=== PATIENT | female | born 2000 | race Two or more races ===

== ENCOUNTER 2025-01-12 12:10 | Emergency (ER) | payer MEDICAID, SELFPAY ==
--- NOTE | 2025-01-12 12:17 | EKG_ITS ---
[facility] Test Date: 2025-01-12 Pat Name: ANAIS SIN Department: Room: - Gender: Female [employer] Equipment Tester: : 2000 Requested By: ED Temporary Provider Order Number: [id number] Reading MD: ED Temporary Provider Measurements Intervals [place] Rate: 110 P: 17 SC: 125 QRS: 10 QRSD: 80 T: 30 QT: 303 QTc: 411 Interpretive Statements SINUS TACHYCARDIA ABNORMAL RHYTHM ECG No previous ECG available for comparison /store/S0/[id number].pdf
[2025-01-12 12:35] VITALS: BP 149/101; PULSE 110; RESP 18; TEMP 37.2; O2SAT 98; BMI 46.3
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
== END 2025-01-12 14:52 | disposition home or self-care (01) ==
PROVIDERS: Emergency Provider Family Medicine; PCP Family Medicine
DX: R07.9 Chest pain, unspecified (principal); R00.0 Tachycardia, unspecified; V89.9XXA Person injured in unspecified vehicle accident, initial encounter
CPT/HCPCS: 71046; 93005; 99283